=== PATIENT | female | born 1955 | race African-American/Black ===

== ENCOUNTER 2020-01-18 13:53 | Emergency (ER) | payer MEDICAID, SELFPAY ==
[2020-01-18 14:41] VITALS: BP 140/96; PULSE 80; RESP 16; TEMP 36.4; O2SAT 97; BMI 32.1
--- NOTE | 2020-01-18 15:08 | ED.FEMALEGU ---
HPI - Female Genitourinary General Chief complaint: Urogenital-Female Stated complaint: vaginal pain Time Seen by Provider: 01/18/20 15:07 History of Present Illness HPI Narrative: Patient complains of burning with urination for 3 weeks, as well as urinary frequency, there is no abdominal pain no nausea no vomiting no fever no chills, no back pain Related Data Previous Rx's Medication Instructions Recorded nitrofurantoin monohyd/m-cryst 100 mg PO Q12H 5 Days #10 cap 01/18/20 [Macrobid] phenazopyridine [Pyridium] 200 mg PO TID PRN #6 tab 01/18/20 Allergies Allergy/AdvReac Type Severity Reaction Status Date / Time No Known Allergies Allergy Unverified 11/19/19 15:42 Review of Systems Review of Systems: No fever no chills no dizziness no weakness no headache no chest pain no shortness of breath no abdominal pain no back pain no leg swelling no rash Yes all other systems are reviewed and are negative PMFSH Past Medical History Source: nursing notes reviewed Medical History (Updated 01/19/20 @ 00:00 by Marino Muniz) Constipation HTN (hypertension) Surgical History (Updated 01/18/20 @ 14:47 by Christen Leon) S/P gastric surgery Social History Social History Advance Directives: No Advance Directives Information Provided: Yes Physical Exam Vital Signs: Vital Signs: Last Vital Signs Temp 97.6 F 01/18/20 14:41 Pulse 80 01/18/20 14:41 Resp 16 01/18/20 14:41 BP 140/96 H 01/18/20 14:41 Pulse Ox 97 01/18/20 14:41 Body Mass Index 32.1 General appearance no acute distress, comfortable appearing cooperative A&O x3 Neck is supple Chest no respiratory distress The abdomen is soft and nontender The back there is no CVA tenderness Extremities no edema Neuro no focal deficit Course Course Course Narrative: Patient was comfortable with a normal physical exam no evidence of any discomfort but has the complaint of burning of urination without a diagnostic UA As she did have classic UTI symptoms I treated her with antibiotic and Pyridium as well and advised her that there can be other reasons for the burning and to follow with primary care doctor if not improved and to return any time if worse MDM - Female Genitourinary Lab Data Attestation: I reviewed the patient's lab results. Labs: Lab Results 01/18/20 Range/Units 15:16 Urine Color YELLOW Urine Appearance HAZY Urine pH 5.5 (5.0-8.0) Ur Specific [place] >= 1.030 H (1.005-1.025) Urine Protein NEG (NEG-TRACE) MG/DL Urine Glucose (UA) NEG (NEG) MG/DL Urine Ketones NEG (NEG) MG/DL Urine Blood 1+ H (NEG) Urine Nitrite NEG (NEG) Ur Leukocyte Esterase TRACE H (NEG) Urine RBC 5-9 H (0) /HPF Urine WBC 1-4 (0-4) /HPF Ur Squamous Epith Cells 3+ /LPF Urine Bacteria 1+ /LPF Discharge Plan Discharge Clinical Impression: Urinary tract infection Patient Disposition: Home, Self-Care Additional Instructions: Your symptoms of discomfort with urination for several weeks may be a urine infection but our test did not confirm that We are treating with antibiotic to see if it gets better Follow with primary care doctor in 2-3 days if not better Return to the ER any time for worsening pain, fever, vomiting, or any concerns Prescriptions: New nitrofurantoin monohyd/m-cryst [Macrobid] 100 mg capsule 100 mg PO Q12H 5 Days Qty: 10 RF: 0 phenazopyridine [Pyridium] 200 mg tablet 200 mg PO TID PRN (Reason: Discomfort with urination) Qty: 6 RF: 0 Interventions: ED Discharge Assessment Last Done: 01/18/20 17:20 Discharge Date/Time: 01/18/20 17:21
[2020-01-18 15:29] LABS: Glucose Urine UA NEG (NEG); Leukocyte Esterase Urine TRACE (NEG); Nitrite Urine NEG (NEG); PH 5.5 (5.0-8.0); Specific Gravity - Urine >= 1.030 (1.005-1.025); Urine Blood 1+ (NEG); Urine Ketones NEG (NEG); Urine Protein NEG (NEG-TRACE)
[2020-01-18 15:31] LABS: Appearance Urine HAZY; Color Urine YELLOW
[2020-01-18 15:47] LABS: Bacteria Urine 1+ /LPF; Squamous Epithelial Cell Urine 3+ /LPF
[2020-01-18] MEDS: Phenazopyridine HCL 200 MG TABLET PO (17:17)
[2020-01-18] MEDS: Nitrofurantoin Monohyd/M-Cryst 100 MG CAPSULE PO (17:18)
== END 2020-01-18 17:21 | disposition home or self-care (01) ==
PROVIDERS: Physician Assistant Medical; Emergency Provider Emergency Medicine; PCP Internal Medicine
DX: N39.0 Urinary tract infection, site not specified (principal); R30.0 Dysuria; I10 Essential (primary) hypertension; Z79.899 Other long term (current) drug therapy; Z98.84 Bariatric surgery status
CPT/HCPCS: 81001; 87086; 99283

== ENCOUNTER 2020-06-13 14:09 | Outpatient (REF) | payer MEDICAID, SELFPAY ==
--- NOTE | ~2020-06-13 | MM_ITS ---
EXAMINATION: MM DIAGNOSTIC DIGITAL BREAST TOMOSYNTHESIS, BILATERAL US DIAGNOSTIC ULTRASOUND BREAST, LEFT CLINICAL INFORMATION: Due for yearly exam. Probable benign macrolobulated oval nodule mid outer left breast for follow-up, initially noted on baseline 2019 The lifetime risk of breast cancer based on the Tyrer-Cuzick Model is 11%. COMPARISON: Mammography: 10/13/2019, 04/14/2019, 04/01/2019 (baseline, BI-RADS 0); targeted left breast ultrasound 04/14/2019, 10/13/2019. TECHNIQUE: Digital breast tomosynthesis is performed in both the craniocaudal and mediolateral oblique views along with computer-aided detection (CAD). Synthesized 2D images are generated from the tomosynthesis. Additional left MLO view is provided. Ultrasound left breast is targeted to the outer quadrant. Grayscale imaging and color Doppler are performed without and with harmonics. FINDINGS: The breasts are heterogeneously dense, which may obscure small masses (ACR BI-RADS breast composition Category c). Parenchymal pattern is similar to prior exams. There is no developing density or interval mass or architectural abnormality. The circumscribed macrolobulated nodule anterior/mid 3:00 position left breast is stable. There are no abnormal calcifications. The axilla and skin contours are unremarkable. Ultrasound left breast demonstrates circumscribed oval nodule 3:00 position anterior breast with overall dimensions and shape and echogenicity similar to prior ultrasound studies. Current measurements are 1.0 x 0.5 x 0.4 cm. Initial measurements are 1.1 x 0.6 x 0.3 cm. There is no increased or decreased through transmission of sound. No associated color flow on Doppler. Finding may represent a fibroadenoma or complicated cyst. Lesion will be reassessed again at time of annual bilateral mammography, due in 12 months, to conclude long-term surveillance. Results are provided to the patient at time of visit by the technologist. MM/MM tomosynthesis diagnostic BI IMPRESSION: 1. Left: Small stable nodule anterior 3:00 position. 2. Right: No mammographic evidence of malignancy. ASSESSMENT: BI-RADS 3: Probably Benign RECOMMENDATION: Diagnostic mammography and targeted left breast ultrasound at time of annual bilateral exam, due in 12 months. This patient's information was entered into a reminder system with a target due date for their next mammogram.
--- NOTE | ~2020-06-13 | US_ITS ---
The diagnostic left breast ultrasound is described in a single combined report along with the bilateral diagnostic digital breast tomosynthesis under accession number [id number].
== END 2020-06-13 14:10 | disposition home or self-care (01) ==
LOC: HO.MAMMO 14:09
PROVIDERS: PCP Internal Medicine; Visit Provider Internal Medicine
DX: N63.25 Unspecified lump in the left breast, overlapping quadrants (principal)
CPT/HCPCS: 76642; 77062; 77066

== ENCOUNTER 2020-10-28 15:41 | Emergency (ER) | payer MEDICAID, SELFPAY ==
[2020-10-28 16:02] VITALS: BP 100/71; PULSE 84; RESP 18; TEMP 37.1; O2SAT 98; BMI 26.4
== END 2020-10-28 19:53 | disposition left against medical advice (07) ==
PROVIDERS: Emergency Provider Emergency Medicine
DX: R22.43 Localized swelling, mass and lump, lower limb, bilateral (principal); M79.662 Pain in left lower leg; M79.661 Pain in right lower leg
CPT/HCPCS: 99281

== ENCOUNTER 2021-06-27 11:45 | Outpatient (REF) | payer MEDICARE, MEDICAID, SELFPAY ==
--- NOTE | ~2021-06-27 | MM_ITS ---
EXAMINATION: MM DIAGNOSTIC DIGITAL BREAST TOMOSYNTHESIS, BILATERAL US DIAGNOSTIC ULTRASOUND BREAST, LEFT CLINICAL INFORMATION: Due for yearly. Also follow-up probable benign hypoechoic nodule 3:00 left breast, initially noted at baseline. The lifetime risk of breast cancer based on the Tyrer-Cuzick Model is 3%. COMPARISON: Mammography: 06/13/2020, 10/13/2019, 04/14/2019, 04/01/2019 (BI-RADS 0, baseline); ultrasound left breast 06/13/2020, 1120, and 04/14/2019. TECHNIQUE: Digital breast tomosynthesis is performed in both the craniocaudal and mediolateral oblique views along with computer-aided detection (CAD). Synthesized 2D images are generated from the tomosynthesis. Ultrasound left breast is performed using grayscale imaging and color Doppler without and with harmonics, targeted to the outer breast. FINDINGS: The breasts are heterogeneously dense, which may obscure small masses (ACR BI-RADS breast composition Category c). Parenchymal pattern is similar to prior studies. There is no developing density or interval architectural abnormality, significant mass, or abnormal calcifications. The skin contours are unremarkable. Ultrasound left breast demonstrates stable oval circumscribed hypoechoic nodule anterior 3:00 left breast. Dimensions are approximately 0.9 x 0.4 cm compared with initial dimensions 1.1 x 0.3 cm. The nodule is now considered to be benign. Results are discussed with the patient at time of visit. MM/MM tomosynthesis diagnostic BI IMPRESSION: -No significant changes from prior studies. No mammographic evidence of malignancy. -Stable hypoechoic nodule anterior 3:00 left breast, now considered to be benign. ASSESSMENT: BI-RADS 2: Benign RECOMMENDATION: Routine annual mammography screening. This patient's information was entered into a reminder system with a target due date for their next mammogram.
== END 2021-06-27 11:46 | disposition home or self-care (01) ==
LOC: HO.MAMMO 11:45
PROVIDERS: Visit Provider Internal Medicine
DX: N63.25 Unspecified lump in the left breast, overlapping quadrants (principal)
CPT/HCPCS: 76642; 77062; 77066

== ENCOUNTER → 2022-09-06 08:00 | Outpatient (BNV) | payer MEDICARE, MEDICAID, SELFPAY | PROVIDERS: PCP Internal Medicine; Visit Provider Radiology Diagnostic Radiology | DX: Z12.31 Encounter for screening mammogram for malignant neoplasm of breast (principal) | CPT/HCPCS: 77063; 77067 ==

== ENCOUNTER 2022-09-06 10:07 | Outpatient (REF) | payer MEDICARE, MEDICAID, SELFPAY ==
--- NOTE | ~2022-09-06 | MM_ITS ---
EXAMINATION: MM SCREENING DIGITAL BREAST TOMOSYNTHESIS, BILATERAL CLINICAL INFORMATION: Screening. Asymptomatic. The lifetime risk of breast cancer based on the Tyrer-Cuzick Model is 8.4%. COMPARISON: Mammography: This study is compared with prior exams dating back to 2019.. TECHNIQUE: Digital breast tomosynthesis is performed in both the craniocaudal and mediolateral oblique views along with computer-aided detection (CAD). Synthesized 2D images are generated from the tomosynthesis. FINDINGS: There are scattered areas of fibroglandular density (ACR BI-RADS breast composition Category b). There are no significant masses, abnormal calcifications, or other abnormalities. MM/MM tomosynthesis screening BI IMPRESSION: No mammographic evidence of malignancy. ASSESSMENT: BI-RADS BI-RADS 1 - Negative RECOMMENDATION: Routine annual mammography screening. 1 year F/U This examination should not preclude the clinical evaluation of a suspicious palpable abnormality. This patient's information was entered into a reminder system with a target due date for their next mammogram.
== END 2022-09-06 10:08 | disposition home or self-care (01) ==
LOC: HO.MAMMO 10:07
PROVIDERS: PCP Internal Medicine; Visit Provider Internal Medicine
DX: Z12.31 Encounter for screening mammogram for malignant neoplasm of breast (principal)
CPT/HCPCS: 77063; 77067

== ENCOUNTER 2023-09-12 09:13 | Outpatient (REF) | payer MEDICARE, MEDICAID, SELFPAY ==
--- NOTE | ~2023-09-12 | MM_ITS ---
EXAMINATION: BONE DENSITOMETRY CLINICAL INDICATION: Menopausal state. COMPARISON: This is the patient's baseline examination. TECHNIQUE: Using a [employer] DXA System (software version: 13.1) manufactured by [employer], dual-energy x-ray absorptiometry was performed of the lumbar spine and left hip. The images are of good technical quality. Summary results are attached. FINDINGS: LEFT FEMUR, NECK: BMD 0.806 g/cm2, Z-score -1.3, T-score -1.7, osteopenia. LEFT FEMUR, TOTAL: BMD 0.940 g/cm2, Z-score -0.5, T-score -0.5, normal. AP SPINE L1-L4: BMD 0.959 g/cm2, Z-score -1.3, T-score -1.8, osteopenia. IDENTIFIED RISK FACTORS: Early menopause, secondary osteoporosis, hysterectomy. HISTORY OF FRACTURE: None listed. MEDICATIONS: Vitamin D, bisphosphonates. MM/XR DEXA axial skeleton IMPRESSION: 1. DIAGNOSIS: Osteopenia based on the lowest T-score value of -1.8 in the lumbar spine applying World Health Organization criteria. 2. 10-YEAR FRACTURE RISK PREDICTION, FRAX: Not performed in this patient on estrogen or bone building treatments. 3. Treatment Recommendations: NOF guidelines recommend consideration for treatment in postmenopausal women and men age 50 and older presenting with the following: -A hip or vertebral (clinical or morphometric) fracture. -T-score less than or equal to -2.5 at the femoral neck or spine after appropriate evaluation to exclude secondary causes. -Low bone mass at the hip or spine and a 10-year fracture probability by FRAX of greater than or equal to 3% for hip fracture or greater than or equal to 20% for major osteoporotic fracture based on the [place] adapted WHO algorithm. 4. Other Recommendations: All treatment decisions require clinical judgment and consideration of individual patient factors, including patient preferences, comorbidities, previous drug use, risk factors not captured in the FRAX model (e.g. frailty, falls, vitamin D deficiency, increased bone turnover, interval significant decline in bone density) and possible under or overestimation of fracture risk by FRAX. Additional medical evaluation for secondary cause of low bone mineral density may be appropriate. FUTURE SCAN RECOMMENDATION: People with diagnosed cases of osteoporosis or at high risk for fracture should have regular bone mineral density tests. For patients eligible for Medicare, routine testing is allowed once every 2 years. The testing frequency can be increased to one year for patients who have rapidly progressing disease, those who are receiving or discontinuing medical therapy to restore bone mass, or have additional risk factors.
== END 2023-09-12 09:14 | disposition home or self-care (01) ==
LOC: HO.MAMMO 09:13
PROVIDERS: PCP Internal Medicine; Visit Provider Internal Medicine
DX: Z12.31 Encounter for screening mammogram for malignant neoplasm of breast (principal); Z13.820 Encounter for screening for osteoporosis; Z78.0 Asymptomatic menopausal state; Z91.89 Other specified personal risk factors, not elsewhere classified
CPT/HCPCS: 77063; 77067; 77080

== ENCOUNTER → 2023-09-12 09:30 | Outpatient (BNV) | payer MEDICARE, MEDICAID, SELFPAY | PROVIDERS: PCP Internal Medicine; Visit Provider Radiology Diagnostic Radiology | DX: Z12.31 Encounter for screening mammogram for malignant neoplasm of breast (principal) | CPT/HCPCS: 77063; 77067 ==

== ENCOUNTER 2024-02-19 09:06 | Outpatient (REF) | payer MEDICARE, MEDICAID, SELFPAY ==
--- NOTE | ~2024-02-19 | XR_ITS ---
EXAMINATION: XR FEMUR, RIGHT XR FEMUR, LEFT CLINICAL INFORMATION: Bilateral thigh pain status post fall 4 days ago COMPARISON: None TECHNIQUE: AP and lateral views of each femur were obtained. FINDINGS: No fracture or malalignment in the right and left femur. No osseous lesions. Normal bone mineralization. Soft tissues are unremarkable aside from phleboliths in the pelvis. Hip joints appear well-preserved. Imaged portions of the knee joints are unremarkable. XR/XR femur RT 2V IMPRESSION: No acute fracture or malalignment in the right and left femurs. Electronically signed by: Sincere Garsia MD 02/22/2024 10:54 PM [facility]
--- NOTE | ~2024-02-19 | XR_ITS ---
EXAMINATION: XR FEMUR, RIGHT XR FEMUR, LEFT CLINICAL INFORMATION: Bilateral thigh pain status post fall 4 days ago COMPARISON: None TECHNIQUE: AP and lateral views of each femur were obtained. FINDINGS: No fracture or malalignment in the right and left femur. No osseous lesions. Normal bone mineralization. Soft tissues are unremarkable aside from phleboliths in the pelvis. Hip joints appear well-preserved. Imaged portions of the knee joints are unremarkable. XR/XR femur LT 2V IMPRESSION: No acute fracture or malalignment in the right and left femurs. Electronically signed by: Sincere Garsia MD 02/22/2024 10:54 PM [facility] GARC[facility]
== END 2024-02-19 09:07 | disposition home or self-care (01) ==
LOC: HO.HHCX 09:06
PROVIDERS: Visit Provider Family Medicine
DX: M79.651 Pain in right thigh (principal); M79.652 Pain in left thigh
CPT/HCPCS: 73552

== ENCOUNTER 2024-09-14 09:10 | Outpatient (REF) | payer MEDICARE, MEDICAID, SELFPAY ==
--- OUTSIDE RECORDS SUMMARY | 2024-09-14 09:29 | XMS_ITS | Encounter Summary ---
Author Organization [employer] Address [address] [place] [address] Care Team Providers Care Detention Deputy Name Role Phone Yulia Sullivan MD Primary Care Provide r Reason for Visit * Reason Comments Med Refill Encounter Details Date Type Department Care Team ([facility] st Contact Info) Description 06/29/2024 Refill [facility] [address], [place] [phone] Yulia Sullivan MD [address] [place], [place] [phone] Mixed hyperlipidemia Social History Tobacco Use Types Packs/Day Years Used Date Smoking Tobacco: Never Smokeless Tobacco: Never Alcohol Use Standard Drinks/Week Comments Never 0 (1 standard drink = 0.6 oz pur e alcohol) Alcohol Answer Date Recorded Frequency of Alcohol Consumption Not on file 03/12/2023 Average Number of Drinks Not on file 024 Frequency of Binge Drinking Not on file 11/2023 Score 0 03/12/2023 Housing Stability Answer Date Recorded What is your housing situation today? I have ganesh alejandre 03/12/[address] you li ve. Do you have problems with any of the following? None of the above 03/12/2023 Food Insecurity Answer Date Recorded Within the past 12 months, y ou worried that your food would run out before you got money to buy more: Never True 03/12/2023 Within the past 12 months,th e food you bought just didn't last and you didn't have enough money to get more: Never True 11/2023 Transportation Answer Date Recorded In the past 12 months, has l ack of transportation kept you from medical appts, meetings, work or from getting things needed for daily living? No 03/12/2023 Utilities Answer Date Recorded In the past 12 months, has t he electric, gas, oil or water company threatened to shut off services in your home? No 03/12/2023 Depression Answer Date Recorded Patient Health Questionnaire-2 Score 0 03/12/2023 Comments Unknown Sex and Gender Information Value Date Recorded Sex Assigned at Female 01/01/2022 10:14 AM EDT Legal Sex Female 10:14 AM EDT Gender Identity Female 01/01/2022 10:14 AM EDT Sexual Orientation Choose not to disclose 2021 10:14 AM EDT documented as of this encounter Plan of Treatment Upcoming Encounters Date Type Department Care Team (Late st Contact Info) Description 10/22/2024 11:00 AM EDT Office Visit [facility] [address] [place] [address] Brittney Redmond 10/29/2024 2:00 PM EDT Office Visit [facility] [address] [place] [phone] Brittney Redmond documented as of this encounter Visit Diagnoses Diagnosis Mixed hyperlipidemia documented in this encounter Care Teams Detention Deputy Relationship Specialty Start Date End Date Yulia Sullivan MD [address] [place] [id number] PCP - General Family Medicine 02/09/19 documented as of this encounter
== END 2024-09-14 09:11 | disposition home or self-care (01) ==
LOC: HO.MAMMO 09:10
PROVIDERS: PCP Internal Medicine; Visit Provider Internal Medicine
DX: Z12.31 Encounter for screening mammogram for malignant neoplasm of breast (principal)
CPT/HCPCS: 77063; 77067

== ENCOUNTER → 2024-09-14 09:15 | Outpatient (BNV) | payer MEDICARE, MEDICAID, SELFPAY | PROVIDERS: PCP Internal Medicine; Visit Provider Internal Medicine | DX: Z12.31 Encounter for screening mammogram for malignant neoplasm of breast (principal) | CPT/HCPCS: 77063; 77067 ==